=== PATIENT | male | born 1995 | race Caucasian/White ===

== ENCOUNTER 2016-12-13 19:16 | Emergency (ER) | payer BC ==
--- NOTE | 2016-12-13 19:44 | Emergency Department Record ---
History of Present Illness - General Chief complaint: Vomiting Stated complaint: VOMITING Time Seen by Provider: 12/13/16 19:43 Source: Patient Mode of Arrival: Ambulatory Limitations: No limitations - History of Present Illness Initial comments: The patient is here due to a 2 day hx of cough, fever, runny nose and mild ST. He was diagnosed with Influenza A by his PCP 2 days ago and started on Tamiflu. Now since taking the medicine he has had persistent nausea, vomiting, and has been unable to keep anything down. He denies any significant OSORIO or AP and the fever did resolve today. Due to the presumed dehydration he was sent to the ER for IVF. MD complaint: Nausea, Vomiting Onset/Timin -: Days(s) Description of Vomiting: Other Description of Diarrhea: Other Associated Abdominal Pain: No Location: Other Radiation: None Severity: Mild Quality: Aching Consistency: Constant Improves with: None Worsens with: None Associated Symptoms: Fever/chills - Related Data Home Medications Medication Instructions Recorded Confirmed Last Taken Dextroamphetamine/Amphetamine 20 mg PO DAILY 12/13/16 12/13/16 Unknown [Adderall] Previous Rx's Medication Instructions Recorded Doxycycline Monohydrate [Mondoxyne 100 mg PO BID #20 capsule 12/13/16 Nl] Ondansetron [Zofran Odt] 4 mg SL .Q4-6H PRN #10 tab.rapdis 12/13/16 Allergies Allergy/AdvReac Type Severity Reaction Status Date / Time iodine [IODINE] AdvReac Unknown PT UNSURE Verified 12/13/16 19:41 OF REACTION Travel Screening - Travel/Exposure Within Last 30 Days Have you traveled within the last 30 days?: No - Travel/Exposure Within Last Year Have you traveled outside the [place] in the last year?: No - Additonal Travel Details Have you been exposed to anyone with a communicable illness?: No - Travel Symptoms Symptom Screening: None Review of Systems Constitutional: Reports: Fever, Malaise. Denies: Chills Eyes: Denies: Eye discharge ENT: Reports: Congestion Respiratory: Reports: Cough. Denies: Dyspnea Past Medical History - SOCIAL HISTORY Smoking Status: Never smoker Alcohol Use: None Drug Use: None - RESPIRATORY Hx Respiratory Disorders: No - CARDIOVASCULAR Hx Cardio Disorders: No - NEURO Hx Neuro Disorders: No - GI Hx GI Disorders: No - Hx Genitourinary Disorders: No - ENDOCRINE Hx Endocrine Disorders: No - MUSCULOSKELETAL Hx Musculoskeletal Disorders: No - PSYCH Hx Psych Problems: No - HEMATOLOGY/ONCOLOGY Hx Hematology/Oncology Disorders: No Family Medical History Any Significant Family History?: No Physical Exam - General General Appearance: Alert, Oriented x3, Cooperative, No acute distress - Head Head exam: Atraumatic, Normocephalic, Normal inspection - Eye Eye exam: Normal appearance, PERRL - ENT ENT exam: Normal exam, Mucous membranes moist, Normal external ear exam, Normal orophraynx, TM's normal bilaterally Throat exam: Normal inspection. negative: Tonsillar erythema, Tonsillar exudate - Neck Neck exam: Normal inspection, Full ROM. negative: Lymphadenopathy, Meningismus , Tenderness - Respiratory Respiratory exam: Normal lung sounds bilaterally. negative: Respiratory distress - Cardiovascular Cardiovascular Exam: Regular rate, Normal rhythm, Normal heart sounds - GI/Abdominal GI/Abdominal exam: Soft, Normal bowel sounds. negative: Distended, Guarding, Mass, Tenderness (The abdomen is very soft.) - Extremities Extremities exam: Normal inspection, Full ROM, Normal capillary refill. negative: Tenderness - Neurological Neurological exam: Alert, Normal gait. negative: Abnormal gait, Motor sensory deficit Course Vital Signs 12/13/16 19:23 Temperature 98.5 F Pulse Rate [ 125 H Pulse Ox Probe] Respiratory 18 Rate Blood Pressure 135/91 [Left Arm] Pulse Ox 96 - Reevaluation(s) Reevaluation #1: The patient is doing better. The first liter of IVF is in and he is feeling much improved but still does have the body aches. 12/13/16 21:12 Reevaluation #2: The patient is doing much better at this time. I did discuss the case with Dr. Burt and he agrees with the plan. 12/13/16 22:01 Reevaluation #3: The patient is doing much better at this time. He denies any OSORIO, neck pain, cough, or trouble breathing. His nausea has resolved and he is up walking and drinking with no issues. I did discuss the plan at length with the patient and mother. He is to be off work until Saturday and to use the Zofran if needed. He also is to start the Doxycycline if still having a productive cough in 2-3 days. The patient is to recheck with DR. Burt early next week and is to have his urine rechecked also for blood. 12/13/16 22:27 Medical Decision Making - Data Complexity MDM Data: Labs Ordered and/or Reviewed, X-Ray Ordered and/or Reviewed - Lab Data Result diagrams: 12/13/16 20:05 12/13/16 20:05 - Radiology Data Radiology results: Report reviewed (CXR: Neg.) Disposition Disposition: Discharge Clinical Impression: Influenza A Disposition: Home, Self-Care Condition: (1) Good Instructions: Acute Nausea and Vomiting (ED), Influenza (ED) Additional Instructions: Please rest and drink plenty of fluids. Do not take the Tamiflu. Use the Zofran for nausea if needed. Start the Doxycycline if not better in 3 days. Return to the ER for any pain, high fever, worsening cough or any trouble breathing. Please see Dr. Burt next week for recheck and to recheck your urine for blood. Prescriptions: Doxycycline Monohydrate [Mondoxyne Nl] 100 mg PO BID #20 capsule Ondansetron [Zofran Odt] 4 mg SL .Q4-6H PRN #10 tab.rapdis PRN Reason: Nausea Forms: Patient Portal Access Time of Disposition: 22:25
[2016-12-13] MEDS ORDERED: 0.9 % SODIUM CHLORIDE 1,000 ML BAG IV ONE ×3 (19:48→21:59)
[2016-12-13] MEDS ORDERED: ONDANSETRON HCL IV 4 MG/2 ML VIAL IVP ONE (19:49)
[2016-12-13 20:09] LABS: HEMOGLOBIN 15.5 gm/dl (14.0-18.0); MEAN CELL VOLUME 87.3 fl (81-97); MEAN CORPUSCULAR HEMOGLOBIN 29.4 pg (27-33); MEAN CORPUSCULAR HGB CONC 33.7 g/dl (32-36); PLATELET COUNT 147 K/uL (130-400); RED BLOOD COUNT 5.27 M/uL (4.40-5.70); RED CELL DISTRIBUTION WIDTH 14.1 % (11.5-14.5); WHITE BLOOD COUNT W/O DIFF 7.8 K/uL (4.2-12.2)
[2016-12-13 20:10] LABS: URINE APPEARANCE CLEAR; URINE BILIRUBIN SMALL (NEGATIVE); URINE BLOOD MODERATE (NEGATIVE); URINE COLOR YELLOW; URINE GLUCOSE (UA) NEGATIVE (NEGATIVE); URINE LEUKOCYTE ESTERASE NEGATIVE (NEGATIVE); URINE NITRITE NEGATIVE (NEGATIVE); URINE PROTEIN NEGATIVE (NEGATIVE)
[2016-12-13 20:17] LABS: URINE KETONE 80 mg/dL (NEGATIVE)
[2016-12-13 20:18] LABS: URINE BACTERIA NONE SEEN; URINE EPITHELIAL CELLS NONE SEEN (FEW); URINE RBC 16 - 25 (NONE SEEN); URINE WBC NONE SEEN (0-2/hpf)
[2016-12-13 20:22] LABS: PLATELET ESTIMATE NORMAL (NORMAL)
[2016-12-13 21:12] LABS: BLOOD UREA NITROGEN 10 mg/dL (9-20); CREATININE 0.9 mg/dL (0.66-1.25); EST GLOMERULAR FILTRATION RATE > 60 ml/min; GLUCOSE,RANDOM 90 mg/dL (70-110)
[2016-12-13 21:13] LABS: ALBUMIN 4.4 gm/dL (3.5-5.0); ALKALINE PHOSPHATASE 118 U/L (38-126); ALT/SGPT 138 U/L (21-72); AST/SGOT 71 U/L (17-59)
[2016-12-13] MEDS ORDERED: KETOROLAC 30 MG/ML VIAL IVP ONE (21:13)
[2016-12-13 21:20] LABS: TOTAL PROTEIN 7.6 gm/dL (6.3-8.2)
[2016-12-13] MEDS ORDERED: ACETAMINOPHEN 325 MG TAB PO ONE (21:33)
== END 2016-12-13 22:36 | disposition home or self-care (01) ==
LOC: ER 19:16
DX: J10.1 Influenza due to other identified influenza virus with other respiratory manifestations (principal); R11.2 Nausea with vomiting, unspecified
CPT/HCPCS: 99284 ×2; 96374; 96375; 96361; 80076; 80048; 81001; 85027; 71020; J1885; J2405; J7030